=== PATIENT | female | born 2005 | race Caucasian/White ===

== ENCOUNTER 2025-06-09 08:04 | Emergency (ER) | payer OTHER ==
[~2025-06-09] VITALS: Ht 152.4 cm; Wt 56.8 kg
[2025-06-09] MEDS: ONDANSETRON 4MG ORAL DISINTEGRATING TAB PO ONE (09:58)
[2025-06-09] MEDS ORDERED: ONDA-282 PO (10:07)
[2025-06-09] MEDS ORDERED: BENZ200C70 PO (10:07)
[2025-06-09 10:12] VITALS: BP 98/58; TEMP 98.8; O2SAT 97
== END 2025-06-09 10:15 | disposition home or self-care (01) ==
LOC: M ED 08:04
DX: U07.1 COVID-19 (principal); B34.1 Enterovirus infection, unspecified; Z79.899 Other long term (current) drug therapy